=== PATIENT | male | born 1975 | race Asian ===

== ENCOUNTER 2016-06-15 04:34 | Emergency (ER) | payer BC ==
[2016-06-15] MEDS ORDERED: Acetaminophen/Codeine 30-300mg Tablet ONE ×2 (05:10)
[2016-06-15] MEDS ORDERED: Triple Antibiotic Oint 1 GM Packet ONE (05:10)
[2016-06-15] MEDS ORDERED: Lidocaine 1% 20 ML MDV ONE (07:11)
[2016-06-15] MEDS ORDERED: Sodium Chloride Irrig Solution 250 ML BOT ONE (07:12)
== END 2016-06-15 05:30 | disposition home or self-care (01) ==
LOC: EDBD → MADERS 04:34
DX: S81.811A Laceration without foreign body, right lower leg, initial encounter (principal); F17.210 Nicotine dependence, cigarettes, uncomplicated; X58.XXXA Exposure to other specified factors, initial encounter
CPT/HCPCS: 12002; J2001

== ENCOUNTER 2016-06-28 23:24 | Emergency (ER) | payer BC | END 2016-06-29 00:12 | disposition home or self-care (01) | LOC: MADERS 23:24 | DX: S81.811D Laceration without foreign body, right lower leg, subsequent encounter (principal); F17.210 Nicotine dependence, cigarettes, uncomplicated; X58.XXXD Exposure to other specified factors, subsequent encounter | CPT/HCPCS: 99281 ==